=== PATIENT | male | born 1980 | race Caucasian/White ===

== ENCOUNTER 2020-07-17 23:59 | Emergency (ER) | payer OTHER ==
--- NOTE | 2020-07-18 00:16 | ER Document Report ---
ED Medical Screen (RME) - General Chief Complaint: Abdominal Pain Stated Complaint: ABDOMINAL PAIN Time Seen by Provider: 07/18/20 00:11 Primary Care Provider: BALBIR JACOME [Primary Care Provider] - Follow up as needed Mode of Arrival: Medic Information source: Patient Notes: 40-year-old male presented to ED for complaint of right upper quadrant abdominal pain that started at 8 PM tonight. He states he has never had this pain before. He states about an hour before he had had chicken strips fried. He states he has been nauseated for the last couple of hours since the pain started no vomiting. No fevers I have greeted and performed a rapid initial assessment of this patient. A comprehensive ED assessment and evaluation of the patient, analysis of test r esults and completion of medical decision making process will be conducted by an additional ED providers. - Related Data Allergies/Adverse Reactions: No Known Allergies Allergy (Verified 06/26/12 22:50) Past Medical History - General Information source: Patient - Social History Cigarette use (# per day): No Chew tobacco use (# tins/day): No Frequency of alcohol use: Occasional Drug Abuse: None Occupation: realestate Lives with: Family Family history: Reviewed & Not Pertinent - Past Medical History Cardiac Medical History: Reports: None Pulmonary Medical History: Reports: None EENT Medical History: Reports: None Neurological Medical History: Reports: None, Hx Migraine Endocrine Medical History: Reports: None Renal/ Medical History: Reports: None Malignancy Medical History: Reports None GI Medical History: Reports: None Musculoskeltal Medical History: Reports Hx Musculoskeletal Deformity, Reports Hx Musculoskeletal Trauma Skin Medical History: Reports Hx Psoriasis Psychiatric Medical History: Reports: Hx Post Traumatic Stress Disorder Infectious Medical History: Denies: Hx Hepatitis Past Surgical History: Reports: Hx Orthopedic Surgery - C5-C6 disc replacement, rotator cuff Physical Exam - Vital signs Vitals: Temp Pulse Resp BP Pulse Ox 98.1 F 57 L 16 123/94 H 97 07/18/20 00:13 07/18/20 00:13 07/18/20 00:13 07/18/20 00:13 07/18/20 00:13 Course - Vital Signs Vital signs: Temp Pulse Resp BP Pulse Ox 98.1 F 57 L 16 123/94 H 97 07/18/20 00:13 07/18/20 00:13 07/18/20 00:13 07/18/20 00:13 07/18/20 00:13 Doctor's Discharge - Discharge Referrals: LOCALMD,NO [Primary Care Provider] - Follow up as needed
[2020-07-18] MEDS ORDERED: MORPHINE SULFATE 10 MG/ML INJ IV ONE ×2 (00:17→02:25)
[2020-07-18] MEDS ORDERED: ONDANSETRON HCL INJ/PF 4 MG/2 ML SDV IV ONE (00:17)
[2020-07-18] MEDS ORDERED: NORMAL SALINE 1000 ML 1,000 ML IV ONE (00:18)
[2020-07-18 01:17] LABS: ABSOLUTE LYMPHOCYTES (AUTO) 0.8 10^3/uL (0.5-4.7); ABSOLUTE MONOCYTES (AUTO) 0.5 10^3/uL (0.1-1.4); ABSOLUTE NEUT (AUTO) 6.2 10^3/uL (1.7-8.2); BASOPHILS % (AUTO) 0.2 % (0-2); EOSINOPHILS % (AUTO) 0.6 % (0-6); HEMATOCRIT 41.3 % (37.9-51.0); HEMOGLOBIN 14.1 g/dL (13.5-17.0); LYMPHOCYTES % (AUTO) 11.1 % (13-45); MEAN CORPUSCULAR HGB CONC 34.1 g/dL (32.0-36.0); MEAN CORPUSCULAR VOLUME 85 fl (80-97); MONOCYTES % (AUTO) 6.1 % (3-13); PLATELET COUNT 219 10^3/uL (150-450); RED BLOOD COUNT 4.85 10^6/uL (4.35-5.55); RED CELL DISTRIBUTION WIDTH 13.8 % (11.5-14.0); TOTAL CELLS COUNTED % (AUTO) 100 %; WHITE BLOOD COUNT 7.6 10^3/uL (4.0-10.5)
[2020-07-18 01:41] LABS: ALBUMIN 4.7 g/dL (3.5-5.0); ALKALINE PHOSPHATASE 52 U/L (38-126); ANION GAP 7 (5-19); ASPARTATE AMINO TRANSFERASE 32 U/L (17-59); BILIRUBIN,DIRECT 0.2 mg/dL (0.0-0.4); BILIRUBIN,TOTAL 0.6 mg/dL (0.2-1.3); BLOOD UREA NITROGEN 18 mg/dL (7-20); CARBON DIOXIDE 27 mmol/L (22-30); CHLORIDE 105 mmol/L (98-107); GLUCOSE 110 mg/dL (75-110); POTASSIUM 4.2 mmol/L (3.6-5.0); TOTAL PROTEIN 7.4 g/dL (6.3-8.2)
--- NOTE | 2020-07-18 01:50 | ER Document Report ---
ED GI/ - General Chief Complaint: Abdominal Pain Stated Complaint: ABDOMINAL PAIN Time Seen by Provider: 07/18/20 00:11 Primary Care Provider: DEMETRIUS CORBIN MD [ACTIVE STAFF] - Follow up in 3-5 days (for general surgery) Mode of Arrival: Medic - HPI Notes: 07/18/20 03:21 [id number]-year-old male to the emergency department with past medical history for gastric sleeve in 2017 to the emergency department with complaints of right upper quadrant abdominal pain that started after eating fried chicken strips tonight. He admits to nausea but no vomiting. He states the pain is better after he received initial pain medications from triage. He states before then he was doubled over pain. He states he feels better now. He states that the pain is still there but dull. He denies any fevers or chills. He does still have a gallbladder. - Related Data Allergies/Adverse Reactions: No Known Allergies Allergy (Verified 06/26/12 22:50) Past Medical History - General Information source: Patient - Social History Smoking Status: Never Smoker Cigarette use (# per day): No Chew tobacco use (# tins/day): No Frequency of alcohol use: Occasional Drug Abuse: None Occupation: realestate Lives with: Family Family History: Other - mom with hx of gallstones - Past Medical History Cardiac Medical History: Reports: None Pulmonary Medical History: Reports: None EENT Medical History: Reports: None Neurological Medical History: Reports: None, Hx Migraine Endocrine Medical History: Reports: None Renal/ Medical History: Reports: None Malignancy Medical History: Reports None GI Medical History: Reports: None. Denies: Hx Hepatitis Musculoskeletal Medical History: Reports Hx Musculoskeletal Deformity, Reports Hx Musculoskeletal Trauma Skin Medical History: Reports Hx Psoriasis Psychiatric Medical History: Reports: Hx Post Traumatic Stress Disorder Infectious Medical History: Denies: Hx Hepatitis Past Surgical History: Reports: Hx Orthopedic Surgery - C5-C6 disc replacement, rotator cuff Review of Systems - Review of Systems Constitutional: denies: Chills, Fever Cardiovascular: denies: Chest pain, Palpitations, Dizziness, Lightheaded Respiratory: denies: Cough, Short of breath Gastrointestinal: Abdominal pain, Nausea. denies: Diarrhea, Vomiting Musculoskeletal: No symptoms reported Skin: No symptoms reported Hematologic/Lymphatic: No symptoms reported Neurological/Psychological: No symptoms reported -: Yes All other systems reviewed and negative Physical Exam - Vital signs Vitals: Temp Pulse Resp BP Pulse Ox 98.1 F 57 L 16 123/94 H 97 07/18/20 00:13 07/18/20 00:13 07/18/20 00:13 07/18/20 00:13 07/18/20 00:13 - Notes Notes: PHYSICAL EXAMINATION: GENERAL: Well-appearing, well-nourished and in no acute distress. States that he feels better after initial 4 mg of morphine HEAD: Atraumatic, normocephalic. EYES: Pupils equal round and reactive to light, extraocular movements intact, sclera anicteric, conjunctiva are normal. ENT: nares patent, oropharynx clear without exudates. Moist mucous membranes. NECK: Normal range of motion, supple without lymphadenopathy LUNGS: Breath sounds clear to auscultation bilaterally and equal. No wheezes rales or rhonchi. HEART: Regular rate and rhythm without murmurs ABDOMEN: There is tenderness to palpation in the right upper quadrant, left u pper quadrant, and epigastrium. Patient has voluntary guarding and a positive Paulino sign. No CVA tenderness. Negative McBurney's point. Normoactive bowel sounds. EXTREMITIES: Normal range of motion, no pitting or edema. No cyanosis. NEUROLOGICAL: No focal neurological deficits. Moves all extremities spontaneously and on command. PSYCH: Normal mood, normal affect. SKIN: Warm, Dry, normal turgor, no rashes or lesions noted. Course - Re-evaluation Re-evalutation: 07/18/20 Noted ultrasound which shows gallstones. However, patient still relates uncomfortable on abdominal exam even after 4 mg of morphine. Given his past medical history for gastric sleeve, will obtain a CT to evaluate for any other causes of his pain other than gallstones. Patient agrees with the plan. Noted CT reading. Patient continues to feel better. He does not have liver enzyme changes, leukocytosis, fever, elevated bili, no evidence for CBD dilation. Repeat abd exam reveal signficantly less tender abdomen. We will plan on having the patient follow-up outpatient with surgery. We have discussed return precautions and he is to return immediately if he has any fevers, jaundice, worsening right upper quadrant abdominal pain, intractable nausea vomiting. He agrees with the plan - Vital Signs Vital signs: Temp Pulse Resp BP Pulse Ox 98.1 F 57 L 9 L 117/83 95 07/18/20 00:13 07/18/20 00:13 07/18/20 06:01 07/18/20 06:01 07/18/20 06:01 - Laboratory Result Diagrams: 07/18/20 00:55 07/18/20 00:55 Laboratory results interpreted by me: 07/18/20 00:55 Lymph % (Auto) 11.1 L Seg Neutrophils % 82.0 H - Diagnostic Test Radiology reviewed: Image reviewed, Reports reviewed Discharge - Discharge Clinical Impression: Gallstones, Right upper quadrant abdominal pain Condition: Stable Disposition: HOME, SELF-CARE Instructions: Gallbladder Disease ([facility]), Low-Fat Diet ([facility]) Additional Instructions: Please follow-up with outpatient general surgery for further management of your gallbladder with gallstones. Please return immediately if you have worsening pain, fever, yellowing of your skin, intractable vomiting. Avoid a high fat diet. Prescriptions: Oxycodone HCl/Acetaminophen [Percocet 5-325 mg Tablet] 1 - 2 tab PO Q4H PRN #15 tablet PRN Reason: Ondansetron [Zofran Odt 4 mg Tablet] 1 - 2 tab PO Q4H PRN #15 tab.rapdis PRN Reason: For Nausea/Vomiting Forms: Return to Work Referrals: DEMETRIUS CORBIN MD [ACTIVE STAFF] - Follow up in 3-5 days (for general surgery)
--- NOTE | 2020-07-18 02:18 | RADIOLOGY REPORT (SQ) ---
EXAM: U/S ABDOMEN LIMITED W/O DOP CLINICAL INDICATION: 40-year-old male with RIGHT upper quadrant abdominal pain. COMPARISON: None. TECHNIQUE: Martino scale sonography of the right upper quadrant abdomen. Examination findings are limited secondary to patient body habitus. FINDINGS: LIVER: Coarsened hepatic echogenicity with poor posterior through transmission suggesting diffuse hepatic steatosis. Hepatomegaly measuring 19 cm. GALLBLADDER: Innumerable foci of intraluminal echogenicity with posterior acoustic shadowing compatible with cholelithiasis without gallbladder wall thickening or pericholecystic fluid. Positive sonographic Paulino's sign. BILIARY TRACT: No significant abnormalities noted. The common bile duct measures 2 mm. PANCREAS: Obscured by overlying bowel gas. KIDNEY: The RIGHT kidney is within normal limits of morphology and echogenicity measuring 11.7 cm. IMPRESSION: 1. Coarsened hepatic echogenicity suggesting diffuse hepatic steatosis and hepatomegaly measuring 19 cm. 2. Cholelithiasis without specific findings to suggest acute cholecystitis. If there remains clinical concern for acute cholecystitis, nuclear medicine scintigraphy HIDA scan may be considered.
[2020-07-18 03:44] LABS: APPEARANCE,URINE CLEAR; BILIRUBIN,URINE NEGATIVE (NEGATIVE); COLOR,URINE YELLOW; GLUCOSE, URINE NEGATIVE (NEGATIVE); KETONES,URINE NEGATIVE (NEGATIVE); LEUKOCYTE ESTERASE,URINE NEGATIVE (NEGATIVE); NITRITE,URINE NEGATIVE (NEGATIVE); PROTEIN,URINE NEGATIVE (NEGATIVE); URINE SPECIFIC GRAVITY 1.027; UROBILINOGEN,URINE NEGATIVE mg/dL (<2.0)
--- NOTE | 2020-07-18 05:40 | RADIOLOGY REPORT (SQ) ---
CLINICAL HISTORY: hx of gastric sleeve, abd pain COMPARISON: None. TECHNIQUE: CT ABDOMEN PELVIS WITH IV CONTRAST on 07/18/2020 12:00 AM [employer] This exam was performed according to our departmental dose-optimization program, which includes automated exposure control, adjustment of the mA and/or kV according to patient size and/or use of iterative reconstruction technique. FINDINGS: Lower lungs are clear. Abdomen: Liver is fatty in attenuation. There is no biliary dilatation. There are multiple gallstones in the gallbladder. There are postoperative changes of a gastric sleeve procedure. The pancreas and spleen are normal in appearance. The adrenal glands and kidneys are unremarkable. Abdominal aorta is normal in course and caliber without aneurysm. There is no free air. There is no retroperitoneal adenopathy. Pelvis: There is no bowel obstruction. Urinary bladder is unremarkable. There is no free fluid. Appendix is normal. Skeleton: There are no acute osseous findings. No suspicious bony lesions. IMPRESSION: No definite acute findings.
[2020-07-18 06:12] VITALS: BP 117/83
== END 2020-07-18 06:36 | disposition home or self-care (01) ==
LOC: ER 23:59
DX: K80.20 Calculus of gallbladder without cholecystitis without obstruction (principal); R10.11 Right upper quadrant pain; R10.811 Right upper quadrant abdominal tenderness; R10.812 Left upper quadrant abdominal tenderness; R10.813 Right lower quadrant abdominal tenderness; R11.0 Nausea; Z98.84 Bariatric surgery status
CPT/HCPCS: 96376; 99285; 96361; 96374; 96375; 36415; 83690; 85025; 80053; 81001; 76705; 74177; J2270; J2405; J7030